=== PATIENT | female | born 1985 | race Caucasian/White ===

== ENCOUNTER 2023-08-19 11:27 | Emergency (ER) | payer BC ==
[~2023-08-19] VITALS: Ht 157.5 cm; Wt 61.2 kg
[2023-08-19 12:18] LABS: BASOPHILS # (AUTO) 0.1 K/UL (0.0-0.2); BASOPHILS % (AUTO) 0.7 % (0.0-2.0); EOSINOPHILS % (AUTO) 0.4 % (0.0-7.0); HEMATOCRIT 36.9 % (31.2-41.9); HEMOGLOBIN 12.3 g/dL (10.9-14.3); LYMPHOCYTES # (AUTO) 0.8 K/uL (0.8-4.8); LYMPHOCYTES % (AUTO) 8.1 % (20.5-51.5); MEAN CORPUSCULAR HEMOGLOBIN 28.7 uug (24.7-32.8); MEAN CORPUSCULAR HGB CONC 34 g/dL (32.3-35.6); MEAN CORPUSCULAR VOLUME 85.7 fL (75.5-95.3); MONOCYTES # (AUTO) 0.8 K/uL (0.1-1.30); NEUTROPHILS # (AUTO) 8.3 K/uL (1.8-8.9); NEUTROPHILS % (AUTO) 82.8 % (38.5-71.5); PLATELET COUNT (AUTO) 244 K/uL (179-408)
[2023-08-19 12:23] LABS: DIFFERENTIAL COMMENT 1
[2023-08-19 12:39] LABS: ALBUMIN 3.7 g/dL (3.4-5.0); BILIRUBIN,DIRECT 0.2 mg/dL (0.0-0.2); BILIRUBIN,TOTAL 0.4 mg/dL (0.2-1.0); CALCIUM 9.2 mg/dL (8.5-10.1); CREATININE 0.7 mg/dL (0.6-1.3); POTASSIUM 3.7 mmol/L (3.5-5.1); TOTAL PROTEIN, SERUM 7.2 g/dL (6.4-8.2)
[2023-08-19 12:57] LABS: *BILIRUBIN,URIN NEGATIVE (NEGATIVE); *BLOOD, URINE 3+ (NEGATIVE); *CLARITY,URINE CLEAR (CLEAR); *COLOR,URINE YELLOW (YELLOW); *KETONES,URINE NEGATIVE (NEGATIVE); *PROTEIN,URINE NEGATIVE (NEGATIVE); *UROBILINOGEN,URINE 0.2 E.U./dl (NORMAL); LEUKOCYTE ESTERASE ,URINE 1+ (NEGATIVE); NITRITE, URINE NEGATIVE (NEGATIVE); PH,URINE 5.5 (5.0-8.0); UGLUCOSE NEGATIVE (NEGATIVE)
[2023-08-19 12:59] LABS: *URINE HCG, QUAL NEGATIVE (NEGATIVE)
[2023-08-19 13:23] LABS: BACTERIA,URINE MANY /HPF (NONE SEEN); SQUAMOUS EPITHELIAL CELL,UR MANY /HPF (NONE SEEN)
[2023-08-19] MEDS ORDERED: FOSFOMYCIN TROMETHAMINE 3 GM PACKET PO ONE (14:00)
[2023-08-19 14:23] VITALS: BP 112/66; TEMP 98.4; O2SAT 99
== END 2023-08-19 14:23 | disposition home or self-care (01) ==
LOC: ER 11:27
DX: N39.0 Urinary tract infection, site not specified (principal); E86.0 Dehydration; R51.9 Headache, unspecified; R10.2 Pelvic and perineal pain
CPT/HCPCS: 36415; 84703; 85025; 85651; A4606; A4663

== ENCOUNTER 2024-12-01 09:02 | Emergency (ER) | payer BC ==
[~2024-12-01] VITALS: Ht 157.5 cm; Wt 64.9 kg
[2024-12-01 11:17] VITALS: BP 122/73; O2SAT 99
== END 2024-12-01 11:17 | disposition home or self-care (01) ==
LOC: ER 09:12
DX: R07.89 Other chest pain (principal)
CPT/HCPCS: 71101; A4606; A4663